=== PATIENT | male | born 1980 | race Caucasian/White ===

== ENCOUNTER 2019-10-17 13:09 | Emergency (ER) | payer BC ==
[2019-10-17] MEDS ORDERED: ASPIRIN 81 MG PO STA (13:35)
[2019-10-17 13:56] LABS: ALT 52 U/L (21-72); AST 34 U/L (17-59); African American GFR (CKD) >90 (>60 ml/min/1.73 sqM); Albumin 4.6 g/dL (3.5-5.0); Alkaline Phosphatase 56 U/L (38-126); Anion Gap 11 mmol/L; Blood Urea Nitrogen 18 mg/dL (9-20); Calcium 9.6 mg/dL (8.4-10.2); Carbon Dioxide 28 mmol/L (22-30); Chloride 103 mmol/L (98-107); Creatine Kinase 112 U/L (55-170); Glucose 104 mg/dL (74-99); Magnesium 1.8 mg/dL (1.6-2.3); Non-African American GFR(CKD) >90 (>60 ml/min/1.73 sqM); Potassium 3.7 mmol/L (3.5-5.1); Sodium 142 mmol/L (137-145); Total Bilirubin 0.6 mg/dL (0.2-1.3); Total Protein 7.6 g/dL (6.3-8.2)
[2019-10-17 13:57] LABS: INR 0.9 (<1.2); Partial Thromboplastin Time 24.3 sec (22.0-30.0); Prothrombin Time 9.8 sec (9.0-12.0)
--- NOTE | 2019-10-17 14:17 | XR ---
EXAMINATION TYPE: XR chest 2V DATE OF EXAM: 10/17/2019 COMPARISON: 11/16/2013 HISTORY: Chest pain TECHNIQUE: Frontal and lateral views of the chest are obtained. FINDINGS: Heart and mediastinum are normal. Lungs are clear. Diaphragm is normal. Bony thorax is int act. IMPRESSION: Normal chest. No change.
--- NOTE | 2019-10-17 14:20 | ED ---
Chest Pain HPI - General Chief Complaint: Chest Pain Stated Complaint: Chest pain Time Seen by Provider: 10/17/19 13:19 Source: patient, RN notes reviewed Mode of arrival: ambulatory Limitations: no limitations - History of Present Illness Initial Comments: 39-year-old male presents emergency Department chief complaint of chest discomfort, shortness of breath, weight gain, leg swelling. Patient's had some on-and-off symptoms of last couple days states that he loss a few pounds on day but gained 10 pounds in which he felt was water weight. He states he leg swelling. He has no history of congestive heart failure no prior cardiac disease other than hypertension. He does believe that he has some family heart history. Patient has no history of asthma COPD denies being a smoker. Patient states that he just feels rundown he does admit that he uses a CPAP at night but states he still feels tired even when using it. Patient denies any prior echo denies any prior stress test. - Related Data Home Medications Medication Instructions Recorded Confirmed Allopurinol [Zyloprim] 100 mg PO DAILY 09/27/14 07/06/16 Colchicine [Colcrys] 0.6 mg PO DAILY 07/06/16 07/06/16 Valsartan [Diovan] 160 mg PO DAILY 07/06/16 07/06/16 Previous Rx's Medication Instructions Recorded Metoprolol Tartrate 25 mg PO BID #30 tab 07/06/16 Allergies Allergy/AdvReac Type Severity Reaction Status Date / Time sulfamethoxazole Allergy Unknown Verified 10/17/19 13:15 [From Bactrim] trimethoprim [From Bactrim] Allergy Unknown Verified 10/17/19 13:15 Penicillins AdvReac Unknown Verified 10/17/19 13:15 Childhood Review of Systems ROS Statement: Those systems with pertinent positive or pertinent negative responses have been documented in the HPI. ROS Other: All systems not noted in ROS Statement are negative. EKG Findings - EKG Comments: EKG Findings:: EKG performed at 13:27 normal sinus rhythm rate of 88 MS 168 QRS 100 QT/QTC 356/4:30 Past Medical History Past Medical History: GERD/Reflux, Hypertension Additional Past Medical History / Comment(s): KIDNEY STONES History of Any Multi-Drug Resistant Organisms: None Reported Additional Past Surgical History / Comment(s): LITHOPTRIPSY Past Anesthesia/Blood Transfusion Reactions: Motion Sickness Past Psychological History: No Psychological Hx Reported Smoking Status: Never smoker Past Alcohol Use History: Occasional Past Drug Use History: None Reported General Exam Limitations: no limitations General appearance: alert, in no apparent distress Head exam: Present: atraumatic, normocephalic, normal inspection Eye exam: Present: normal appearance, PERRL, EOMI. Absent: scleral icterus, conjunctival injection, periorbital swelling ENT exam: Present: normal exam, normal oropharynx, mucous membranes moist Neck exam: Present: normal inspection, full ROM. Absent: tenderness, meningismus, lymphadenopathy Respiratory exam: Present: normal lung sounds bilaterally. Absent: respiratory distress, wheezes, rales, rhonchi, stridor Cardiovascular Exam: Present: regular rate, normal rhythm, normal heart sounds. Absent: systolic murmur, diastolic murmur, rubs, gallop, clicks Extremities exam: Present: pedal edema (Minimal) Neurological exam: Present: alert, oriented X3 Skin exam: Present: warm, dry, intact, normal color. Absent: rash Course Vital Signs 10/17/19 10/17/19 10/17/19 13:12 13:41 14:17 Temperature 97.8 F Pulse Rate 90 83 Respiratory 18 16 16 Rate Blood Pressure 128/76 O2 Sat by Pulse 99 98 Oximetry Chest Pain MDM - MDM Patient's labs, EKG, chest x-ray unremarkable. Patient has a negative d-dimer BMP is unremarkable. Patient has minimal leg swelling. He has atypical chest pain. Patient advised follow-up with cardiology for echocardiogram, stress test and Ultram for any worsening symptoms. Disposition Clinical Impression: Atypical chest pain, Leg edema Disposition: HOME SELF-CARE Condition: Stable Instructions (If sedation given, give patient instructions): Chest Pain (ED) Additional Instructions: Please follow-up with cardiology for echo, stress test.Please return to the Emergency Department if symptoms worsen or any other concerns. Is patient prescribed a controlled substance at d/c from ED?: No Referrals: Chino Alex DO [Primary Care Provider] - 1-2 days Bello Latham MD [STAFF PHYSICIAN] - 1-2 days Time of Disposition: 15:08
[2019-10-17 14:31] LABS: Basophils % (A) 0 %; Eosinophils # (A) 0.2 k/uL (0-0.7); Eosinophils % (A) 3 %; HCT 41.5 % (39.0-53.0); HGB 14.8 gm/dL (13.0-17.5); Hyperchromasia Slight; Lymphocytes # (A) 1.3 k/uL (1.0-4.8); Lymphocytes % (A) 20 %; MCH 28.9 pg (25.0-35.0); MCHC 35.6 g/dL (31.0-37.0); MCV 81.2 fL (80.0-100.0); Mean Platelet Volume 7.1; Monocytes # (A) 0.4 k/uL (0-1.0); Monocytes % (A) 6 %; Neutrophils # (A) 4.5 k/uL (1.3-7.7); Neutrophils % (A) 70 %; Platelet Count 166 k/uL (150-450); Poikilocytosis Slight; RBC 5.11 m/uL (4.30-5.90); WBC 6.5 k/uL (3.8-10.6)
[2019-10-17 15:16] VITALS: BP 125/71; PULSE 82; RESP 18; TEMP 98.1
== END 2019-10-17 15:15 | disposition home or self-care (01) ==
LOC: EC 13:09
DX: R07.89 Other chest pain (principal); R60.0 Localized edema; R06.02 Shortness of breath; R63.5 Abnormal weight gain; R53.83 Other fatigue; I10 Essential (primary) hypertension; Z88.0 Allergy status to penicillin; Z88.2 Allergy status to sulfonamides; Z79.899 Other long term (current) drug therapy; Z87.442 Personal history of urinary calculi; Z98.890 Other specified postprocedural states; Z99.89 Dependence on other enabling machines and devices; Z82.49 Family history of ischemic heart disease and other diseases of the circulatory system
CPT/HCPCS: 36415; 71046; 80053; 82550; 83690; 83735; 83880; 84484; 85025; 85379; 85610; 85730; 93005; 99285

== ENCOUNTER 2021-02-26 17:23 | Emergency (ER) | payer BC, OTHER ==
[2021-02-26 18:43] VITALS: RESP 18
--- NOTE | 2021-02-26 19:04 | XR ---
EXAMINATION TYPE: XR chest 2V DATE OF EXAM: 02/26/2021 COMPARISON: 10/17/2019 HISTORY: Chest pain. Short of breath TECHNIQUE: 2 views FINDINGS: There is patchy bilateral pulmonary infiltrates that measure up to almost 3 cm. Heart size is normal. There is no heart failure. There is no pleural effusion. IMPRESSION: Bilateral patchy pneumonia is new compared to old exam.
[2021-02-26] MEDS ORDERED: BAMLANIVIMAB (EUA) 700 MG, ETESEVIMAB (EUA) 1,400 MG in SODIUM CHLORIDE 0.9% 50 ML IVPB ONE (20:50)
--- NOTE | 2021-02-26 20:51 | ED ---
URI HPI - General Chief Complaint: Upper Respiratory Infection Stated Complaint: covid+/worsen symptoms Time Seen by Provider: 02/26/21 20:23 Source: patient, RN notes reviewed Mode of arrival: ambulatory Limitations: no limitations - History of Present Illness Initial Comments: Patient is a 41-year-old male presents emergency department complaining of Covid symptoms. He did test positive on 02/21/2021. He noted that symptoms began on for 321. He noted that he's had increased dyspnea since developing symptoms. He was in no apparent distress or pain while sitting up in bed during exam and interview. He was well-appearing well-hydrated with no other complaints or issues. He denied any chest pain headache nausea vomiting diarrhea constipation . - Related Data Home Medications Medication Instructions Recorded Confirmed Allopurinol [Zyloprim] 100 mg PO DAILY 09/27/14 07/06/16 Colchicine [Colcrys] 0.6 mg PO DAILY 07/06/16 07/06/16 Valsartan [Diovan] 160 mg PO DAILY 07/06/16 07/06/16 Previous Rx's Medication Instructions Recorded Metoprolol Tartrate 25 mg PO BID #30 tab 07/06/16 Allergies Allergy/AdvReac Type Severity Reaction Status Date / Time sulfamethoxazole Allergy Unknown Verified 10/17/19 13:15 [From Bactrim] trimethoprim [From Bactrim] Allergy Unknown Verified 10/17/19 13:15 Penicillins AdvReac Unknown Verified 10/17/19 13:15 Childhood Review of Systems ROS Statement: Those systems with pertinent positive or pertinent negative responses have been documented in the HPI. ROS Other: All systems not noted in ROS Statement are negative. Past Medical History Past Medical History: GERD/Reflux, Hypertension Additional Past Medical History / Comment(s): KIDNEY STONES History of Any Multi-Drug Resistant Organisms: None Reported Additional Past Surgical History / Comment(s): LITHOPTRIPSY Past Anesthesia/Blood Transfusion Reactions: Motion Sickness Past Psychological History: No Psychological Hx Reported Smoking Status: Never smoker Past Alcohol Use History: Occasional Past Drug Use History: None Reported General Exam Limitations: no limitations General appearance: alert, in no apparent distress, obese Head exam: Present: atraumatic, normocephalic, normal inspection Eye exam: Present: normal appearance, PERRL, EOMI. Absent: scleral icterus, conjunctival injection, periorbital swelling Neck exam: Present: normal inspection. Absent: tenderness, meningismus, lymphadenopathy Respiratory exam: Present: normal lung sounds bilaterally. Absent: respiratory distress, wheezes, rales, rhonchi, stridor Cardiovascular Exam: Present: regular rate, normal rhythm, normal heart sounds. Absent: systolic murmur, diastolic murmur, rubs, gallop, clicks GI/Abdominal exam: Present: soft, normal bowel sounds. Absent: distended, tenderness, guarding, rebound, rigid Extremities exam: Present: normal inspection, full ROM, normal capillary refill. Absent: tenderness, pedal edema, joint swelling, calf tenderness Neurological exam: Present: alert, oriented X3, CN II-XII intact Psychiatric exam: Present: normal affect, normal mood Skin exam: Present: warm, dry, intact, normal color. Absent: rash Course Vital Signs 02/26/21 18:29 Temperature 99.5 F Pulse Rate 108 H Respiratory 18 Rate Blood Pressure 124/75 O2 Sat by Pulse 96 Oximetry Medical Decision Making - Medical Decision Making 41-year-old male that tested positive for Covid on 02/21/2021. Chest x-ray, Covid test ordered. Covid test positive. Chest x-ray did show some patchy bilateral infiltrates. Patient was informed that he does meet criteria for monoclonal antibody therapy and wishes to undergo the IV infusion treatment. Case discussed with Dr. Lucas, patient can discharge home - Lab Data Lab Results 02/26/21 Range/Units 18:44 Coronavirus (PCR) Detected A (Not Detectd) - Radiology Data Radiology results: report reviewed, image reviewed Chest x-ray: Bilateral patchy pneumonia is new compared to old exam. Disposition Clinical Impression: COVID-19 Disposition: HOME SELF-CARE Condition: Stable Instructions (If sedation given, give patient instructions): Coronavirus Disease 2019 (COVID-19), Upper Respiratory Infection (ED) Additional Instructions: Please return to the Emergency Department if symptoms worsen or any other concerns. Follow-up with primary care after the 10-14 day quarantine From symptom onset. Can continue to take [id number] anti-inflammatories for fevers and muscle aches and pains. Increase oral fluids get plenty rest. Is patient prescribed a controlled substance at d/c from ED?: No Referrals: Chino Alex DO [Primary Care Provider] - 1-2 days Time of Disposition: 21:21
[2021-02-26] MEDS ORDERED: SODIUM CHLORIDE 0.9% 50 ML IVPB ONE (21:10)
[2021-02-26] MEDS ORDERED: SODIUM CHLORIDE 0.9% 1,000 ML IV ONE (21:21)
[2021-02-26 22:01] VITALS: BP 150/87; PULSE 94; TEMP 98.8
== END 2021-02-26 22:48 | disposition home or self-care (01) ==
LOC: EC 17:23
DX: U07.1 COVID-19 (principal); K21.9 Gastro-esophageal reflux disease without esophagitis; I10 Essential (primary) hypertension
CPT/HCPCS: 87635; 71046; 99285; 96365; Q0245

== ENCOUNTER 2022-06-25 09:18 | Emergency (ER) | payer BC ==
[2022-06-25 09:31] VITALS: BP 152/99; PULSE 77; RESP 18; TEMP 97.5
[2022-06-25] MEDS ORDERED: SODIUM CHLORIDE 0.9% 2,000 ML IV STA (09:38)
[2022-06-25] MEDS ORDERED: ONDANSETRON 4 MG/2 ML VIAL IVP STA (09:38)
[2022-06-25] MEDS ORDERED: KETOROLAC 15 MG/ML 1 ML VIAL IVP STA (09:38)
[2022-06-25] MEDS ORDERED: HYDROmorphone 0.5 MG/0.5 ML SYRINGE IVP STA (09:38)
[2022-06-25 09:44] LABS: Basophils # (A) 0.1 k/uL (0-0.2); Basophils % (A) 1 %; Eosinophils # (A) 0.2 k/uL (0-0.7); Eosinophils % (A) 2 %; HCT 49.5 % (39.0-53.0); Lymphocytes # (A) 1.2 k/uL (1.0-4.8); Lymphocytes % (A) 12 %; MCH 28.6 pg (25.0-35.0); MCHC 34.4 g/dL (31.0-37.0); MCV 83.1 fL (80.0-100.0); Mean Platelet Volume 8.6; Monocytes # (A) 0.5 k/uL (0-1.0); Monocytes % (A) 5 %; Neutrophils # (A) 8.4 k/uL (1.3-7.7); Neutrophils % (A) 80 %; Platelet Count 148 k/uL (150-450); Poikilocytosis Slight; RBC 5.95 m/uL (4.30-5.90); RDW 14.4 % (11.5-15.5); WBC 10.6 k/uL (3.8-10.6)
--- NOTE | 2022-06-25 09:45 | ED ---
General Adult HPI - General Chief complaint: Back Pain/Injury Stated complaint: Abdominal pain, kidney stone Time Seen by Provider: 06/25/22 09:32 Source: patient, RN notes reviewed Mode of arrival: ambulatory Limitations: no limitations - History of Present Illness Initial comments: This a 42-year-old male presents emergency Department chief complaint right flank pain. Patient states that pain woke him up around 3 AM there is some consistent pain but does wax and wane. Patient states never resolves patient states nothing makes the pain feel better or worse does admit to nausea vomiting states he had a kidney stone 15 years ago that was incidentally found states that the pain felt like this is much different than the past. Patient denies any prior abdominal surgeries no dysuria no hematuria no diarrhea no constipation denies fever or chills - Related Data Home Medications Medication Instructions Recorded Confirmed allopurinoL [Zyloprim] 100 mg PO DAILY 09/27/14 07/06/16 Colchicine [Colcrys] 0.6 mg PO DAILY 07/06/16 07/06/16 Valsartan [Diovan] 160 mg PO DAILY 07/06/16 07/06/16 Previous Rx's Medication Instructions Recorded Metoprolol Tartrate 25 mg PO BID #30 tab 07/06/16 HYDROcodone/APAP 7.5-325MG [[place] 1 tab PO Q6HR PRN 3 Days #12 tab 06/25/22 7.5-325] Ondansetron Odt [Zofran Odt] 4 mg PO Q8HR PRN #14 tab 06/25/22 Tamsulosin [Flomax] 0.4 mg PO DAILY #7 cap 06/25/22 Allergies Allergy/AdvReac Type Severity Reaction Status Date / Time sulfamethoxazole Allergy Unknown Verified 06/25/22 09:28 [From Bactrim] trimethoprim [From Bactrim] Allergy Unknown Verified 06/25/22 09:28 Penicillins AdvReac Unknown Verified 06/25/22 09:28 Childhood Review of Systems ROS Statement: Those systems with pertinent positive or pertinent negative responses have been documented in the HPI. ROS Other: All systems not noted in ROS Statement are negative. Past Medical History Past Medical History: GERD/Reflux, Hypertension Additional Past Medical History / Comment(s): KIDNEY STONES History of Any Multi-Drug Resistant Organisms: None Reported Additional Past Surgical History / Comment(s): LITHOPTRIPSY Past Anesthesia/Blood Transfusion Reactions: Motion Sickness Past Psychological History: No Psychological Hx Reported Smoking Status: Never smoker Past Alcohol Use History: Occasional Past Drug Use History: None Reported General Exam Limitations: no limitations General appearance: alert, in no apparent distress Head exam: Present: atraumatic, normocephalic, normal inspection Respiratory exam: Present: normal lung sounds bilaterally. Absent: respiratory distress, wheezes, rales, rhonchi, stridor Cardiovascular Exam: Present: regular rate, normal rhythm, normal heart sounds. Absent: systolic murmur, diastolic murmur, rubs, gallop, clicks GI/Abdominal exam: Present: soft, normal bowel sounds. Absent: distended, tenderness, guarding, rebound, rigid Back exam: Present: full ROM. Absent: tenderness, CVA tenderness (R) (Patient has no increase in pain with palpation over reported.), CVA tenderness (L), paraspinal tenderness, vertebral tenderness Skin exam: Present: warm, dry, intact, normal color. Absent: rash Course Vital Signs 06/25/22 09:28 Temperature 97.5 F L Pulse Rate 77 Respiratory 18 Rate Blood Pressure 152/99 O2 Sat by Pulse 98 Oximetry Medical Decision Making - Medical Decision Making CT shows evidence a 6 mm UPJ stone. Patient's kidney function is mildly elevated this a chronic in nature. Patient was hydrated, given pain control. Patient discharged with follow-up with urology as a 6 mm stone. - Lab Data Result diagrams: 06/25/22 09:35 06/25/22 09:35 Lab Results 06/25/22 06/25/22 06/25/22 Range/Units 09:35 09:35 09:50 WBC 10.6 (3.8-10.6) k/uL RBC 5.95 H (4.30-5.90) m/uL Hgb 17.0 (13.0-17.5) gm/dL Hct 49.5 (39.0-53.0) % MCV 83.1 (80.0-100.0) fL MCH 28.6 (25.0-35.0) pg MCHC 34.4 (31.0-37.0) g/dL RDW 14.4 (11.5-15.5) % Plt Count 148 L (150-450) k/uL MPV 8.6 Neutrophils % 80 % Lymphocytes % 12 % Monocytes % 5 % Eosinophils % 2 % Basophils % 1 % Neutrophils # 8.4 H (1.3-7.7) k/uL Lymphocytes # 1.2 (1.0-4.8) k/uL Monocytes # 0.5 (0-1.0) k/uL Eosinophils # 0.2 (0-0.7) k/uL Basophils # 0.1 (0-0.2) k/uL Poikilocytosis Slight Sodium 140 (137-145) mmol/L Potassium 4.1 (3.5-5.1) mmol/L Chloride 101 (98-107) mmol/L Carbon Dioxide 26 (22-30) mmol/L Anion Gap 13 mmol/L BUN 23 H (9-20) mg/dL Creatinine 1.36 H (0.66-1.25) mg/dL Est GFR (CKD-EPI)AfAm 73 (>60 ml/min/1.73 sqM) Est GFR (CKD-EPI)NonAf 63 (>60 ml/min/1.73 sqM) Glucose 92 (74-99) mg/dL Calcium 9.8 (8.4-10.2) mg/dL Total Bilirubin 1.2 (0.2-1.3) mg/dL AST 39 (17-59) U/L ALT 51 H (4-49) U/L Alkaline Phosphatase 64 (38-126) U/L Total Protein 8.2 (6.3-8.2) g/dL Albumin 5.0 (3.5-5.0) g/dL Lipase 157 (23-300) U/L Urine Color Yellow Urine Appearance Clear (Clear) Urine pH 5.5 (5.0-8.0) Ur Specific [place] 1.025 (1.001-1.035) Urine Protein Trace H (Negative) Urine Glucose (UA) Negative (Negative) Urine Ketones Negative (Negative) Urine Blood Large H (Negative) Urine Nitrite Negative (Negative) Urine Bilirubin Negative (Negative) Urine Urobilinogen <2.0 (<2.0) mg/dL Ur Leukocyte Esterase Negative (Negative) Urine RBC >182 H (0-5) /hpf Urine WBC 1 (0-5) /hpf Ur Squamous Epith Cells <1 (0-4) /hpf Hyaline Casts 1 (0-2) /lpf Urine Mucus Rare H (None) /hpf Disposition Clinical Impression: Obstruction of right ureteropelvic junction (UPJ) due to stone Disposition: HOME SELF-CARE Condition: Stable Instructions (If sedation given, give patient instructions): Kidney Stones (ED) Additional Instructions: Please return to the Emergency Department if symptoms worsen or any other concerns. Prescriptions: Tamsulosin [Flomax] 0.4 mg PO DAILY #7 cap HYDROcodone/APAP 7.5-325MG [[place] 7.5-325] 1 tab PO Q6HR PRN 3 Days #12 tab PRN Reason: pain Ondansetron Odt [Zofran Odt] 4 mg PO Q8HR PRN #14 tab PRN Reason: Nausea Is patient prescribed a controlled substance at d/c from ED?: No Referrals: Chino Alex DO [Primary Care Provider] - 1-2 days Pradeep Llanos MD [STAFF PHYSICIAN] - 1-2 days Time of Disposition: 10:55
[2022-06-25 10:05] LABS: Calcium 9.8 mg/dL (8.4-10.2); Potassium 4.1 mmol/L (3.5-5.1); Total Bilirubin 1.2 mg/dL (0.2-1.3); Total Protein 8.2 g/dL (6.3-8.2)
[2022-06-25 10:25] LABS: Appearance,Urine Clear (Clear); Bilirubin,Urine Negative (Negative); Blood,Urine Large (Negative); Color,Urine Yellow; Glucose,Urine (UA) Negative (Negative); Hyaline Casts,Urine 1 /lpf (0-2); Ketones,Urine Negative (Negative); Leukocyte Esterase,Urine Negative (Negative); Mucus,Urine Rare /hpf; Nitrite,Urine Negative (Negative); PH, Urine 5.5 (5.0-8.0); Protein,Urine Trace (Negative); RBC,Urine >182 /hpf (0-5); Specific Gravity,Urine 1.025 (1.001-1.035); Squamous Epithelial Cell,Urine <1 /hpf (0-4); Urobilinogen,Urine <2.0 mg/dL (<2.0); WBC,Urine 1 /hpf (0-5)
--- NOTE | 2022-06-25 10:35 | CT ---
EXAMINATION TYPE: CT abdomen pelvis wo con DATE OF EXAM: 06/25/2022 COMPARISON: None HISTORY: 42-year-old male Right flank pain, concern for stone. Hx of kidney stones. CT DLP: 1306.4 mGycm. Automated exposure control for dose reduction was used. TECHNIQUE: Contiguous axial scanning of the abdomen and pelvis without IV contrast. Coronal and sagit france reconstructions performed. FINDINGS: Lack of IV contrast limits assessment of the solid abdominal viscera, lymph nodes, and vascular struc tures. LUNG BASES: No significant abnormality is appreciated. LIVER/GB: MRSA 21.0 cm with low attenuation compatible with fatty infiltration. Gallbladder shows no abnormal distention or wall thickening. PANCREAS: No significant abnormality is seen. SPLEEN: Enlarged at 15.9 cm measured on coronal series. ADRENALS: No significant abnormality is seen. KIDNEYS: Partially exophytic lesion from the lower pole right kidney measuring 3.7 cm. This has inter mediate attenuation of 21 Hounsfield units. A mildly complicated cyst is suspected. Confirmation with ultrasound recommended when patient's condition has improved. Similar lesion measuring 2.8 cm within the anterior left kidney. Solid masses should be excluded. 4 mm nonobstructive left midpole renal calculus. There is a 6 mm stone just beyond the right UPJ with [id number] obstructive uropathy. Right-sided perinephric edema likely reactive to the urinary tract obstruction. BOWEL: No significant abnormality is seen. Normal appendix. Mild stool. No pericolonic inflammatory change. LYMPH NODES: No mesenteric or retroperitoneal lymphadenopathy. No free fluid or free air. PELVIS: Prostate gland mildly enlarged 0.7 cm wide. Small pelvic phlebolith. No abnormal fluid collec tion in the pelvis. Patulous inguinal canals. No pelvic lymphadenopathy. Bladder collapsed. BONES: Mild multilevel degenerative change in the visualized thoracic and lumbar spine. IMPRESSION: 1. A 6 mm stone upper right ureter just beyond the UPJ with [id number] obstructive uropathy. R ight-sided perinephric edema likely reactive to the ureteral obstruction. Correlate to exclude superi mposed infection. Additional nonobstructing 4 mm left renal calculus. 2. A 3.7 cm round lesion right kidney and a 2.8 cm similar round lesion in the left kidney. These joshua th show intermediate attenuation and could represent complicated cysts or solid masses. The former is favored and should be confirmed with a renal ultrasound on an outpatient basis after the patient's a cute condition has resolved. 3. Hepatosplenic medically (liver 21.0 cm and spleen 15.9 cm). Clinically correlate. There is also underlying moderate hepatic steatosis.
== END 2022-06-25 11:30 | disposition home or self-care (01) ==
LOC: EC 09:18
DX: N13.5 Crossing vessel and stricture of ureter without hydronephrosis (principal); I10 Essential (primary) hypertension; Z88.2 Allergy status to sulfonamides; Z88.0 Allergy status to penicillin
CPT/HCPCS: 36415; 80053; 83690; 85025; 81001; 74176; 99284; 96374; 96375; 96361; J2405; J1885; J1170

== ENCOUNTER → 2022-06-26 | Outpatient (CLI) | payer BC ==
--- NOTE | 2022-06-26 10:07 | XR ---
EXAMINATION TYPE: XR KUB DATE OF EXAM: 06/26/2022 COMPARISON: CT abdomen pelvis a 922 HISTORY: Pain TECHNIQUE: Single KUB image of the abdomen is obtained FINDINGS: Small bowel demonstrates no evidence for dilatation or air fluid levels. Gas and fecal material is seen in non-distended colon. There is a 6 mm radiopaque calculus just right lateral to the L3-L4 vertebral bodies corresponding to CT yesterday. This appears in similar location to CT and is in the region of the proximal right uret er. The osseous structures are intact. IMPRESSION: 6 mm radiopaque calculus just right lateral to L3-L4 bodies in the proximal right ureter correspondin g to CT. No significant change in position.
== END | disposition home or self-care (01) ==
LOC: RADXRMAIN 09:09
PROVIDERS: ATTEND Urology
DX: N20.1 Calculus of ureter (principal)
CPT/HCPCS: 74018

== ENCOUNTER → 2022-08-07 | Outpatient (CLI) | payer BC ==
--- NOTE | 2022-08-07 15:38 | MR ---
MR kidney with and without contrast HISTORY: Right renal mass Multiplanar multisequence and postcontrast images obtained through the kidneys, patient received 12.5 cc Gadavist IV Correlation CT scan 06/25/2022 lung bases are unremarkable. Aorta shows normal caliber. Incidental note made of probable hepatic steatosis, there is signal drop on out of phase imaging, bill e focal fatty sparing suspected adjacent to the gallbladder. The liver and spleen are enlarged. There is no retroperitoneal adenopathy. Colonic interposition noted anterior to the liver. Adrenal glands are within normal limits. Pancreas is normal. Gallbladder shows no definite stones. No evident bowel obstruction. The previously identified proximal right ureteral calculus and hydronephrosis is no longer seen. The previously described cystic focus associated with the lower pole the right kidney is again noted and shows T2 hyperintensity but is low signal on T1 and does not show any enhancement. Lesion measures ap proximately 3.8 cm. Immediately adjacent to the largest lesion is a smaller lesion somewhat more ceph alad which measures approximately 2 cm, suspect there is a minimal area of hyperintensity on T1-weigh marko sequences which is dependent, possible milk of calcium which may account for some slight diminish ed signal on T2 weighted sequences as compared to the larger adjacent lesion however there is no appr eciable enhancement following contrast administration. On the left anteriorly there is a focus of mixed signal on T2 weighted sequences corresponding to the mass seen on CT measuring 3 cm, T1 signal is low to intermediate with a focus of high signal. There is some enhancement present following contrast administration. Multiple T2 bright foci are scattered within the left kidney which are subcentimeter in size, small cortical cysts also suspected within th e right kidney which are subcentimeter in size. IMPRESSION: Anterior lesion within the left kidney is suspicious for renal cell carcinoma. Hepatosple nomegaly and hepatic steatosis. Cortical cysts are present within the bilateral kidneys, possible pro teinaceous cyst involving the right kidney not described on prior CT, follow-up.
== END | disposition home or self-care (01) ==
LOC: RADMRIMAIN 09:27
PROVIDERS: ATTEND Urology
DX: N28.9 Disorder of kidney and ureter, unspecified (principal); K76.0 Fatty (change of) liver, not elsewhere classified; N28.1 Cyst of kidney, acquired
CPT/HCPCS: 74183; A9585

== ENCOUNTER → 2023-03-11 | Outpatient (CLI) | payer BC ==
--- NOTE | 2023-03-11 14:59 | P.SLEEP ---
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 The patient has been diagnosed having MARILYN back in 2016. At that time, the patient was given a home sleep study and the patient was found to have mild obstructive sleep apnea with an AHI of 12. Subsequently, the patient underwent a CPAP titration on 07/01/2016 and the patient was titrated to a CPAP pressure of 10 cm of water. He was offered a CPAP unit. He used the machine for a while and then he quit and subsequently went back on using the machine. He is not sure if he is benefiting from the treatment. His is happy with the treatment as the patient does not snore while on therapy. He is known to have history of renal cancer and the patient is undergone partial left nephrectomy, he also has hypertension and obesity. His weight has remained stable over the past 6 years and the patient's weight is around 270 pounds. His machine is functional. Is using the [employer] fx nasal pillows. I checked the compliance data on his machine. Over the past 30 days, the patient utilized the machine 27 out of 30 days. His been averaging around 6.6 hours of CPAP use per night. His leak is in order of 17 L/m. His AHI is down to 0.3 indicating very successful treatment. His Houston score is at 8. The patient works after nauseous on the border. The patient is working between 2 PM and midnight. He goes to bed at around 1:30 AM and he gets out of bed at around 7:30 AM in the morning. He is averaging only 6-7 hours of sleep. He drinks caffeinated beverages to keep himself alert and awake. He wakes up once in the middle of night to urinate. Does not take any naps during the day. His functionality is well preserved. No history of any motor vehicle accident because of feeling drowsy or sleepy. Review of Systems Constitutional: Reports daytime sleepiness, Reports fatigue Eyes: denies as per HPI, denies blurred vision, denies bulging eye, denies decreased vision, denies diplopia, denies discharge, denies dry eye, denies irritation, denies itching, denies pain, denies photophobia, denies loss of peripheral vision, denies loss of vision, denies tunnel vision/blind spots Ears: deny: decreased hearing, ear discharge, earache, tinnitus Ears, nose, mouth and throat: Reports as per HPI Breasts: absent: as per HPI, gynecomastia Cardiovascular: Reports as per HPI Respiratory: Reports sleep apnea Gastrointestinal: Reports as per HPI Genitourinary: Reports as per HPI Musculoskeletal: Reports as per HPI Musculoskeletal: absent: ankle pain, ankle stiffness, ankle swelling, as per HPI, elbow pain, elbow stiffness, elbow swelling, foot pain, foot stiffness, foot swelling, hand pain, hand stiffness, hand swelling, hip pain, hip stiffness , hip swelling, knee pain, knee stiffness, knee swelling, shoulder pain, shoulder stiffness, shoulder swelling, wrist pain, wrist stiffness, wrist swelling Integumentary: Reports as per HPI Neurological: Reports as per HPI Psychiatric: Reports as per HPI Endocrine: Reports as per HPI Hematologic/Lymphatic: Reports as per HPI Allergic/Immunologic: Reports as per HPI Past Medical History Past Medical History: Cancer (Renal cell cancer and the patient undergone a partial nephrectomy), Hyperlipidemia, Hypertension, Sleep Apnea/CPAP/BIPAP Additional Past Medical History / Comment(s): KIDNEY STONES,. GOUT. FATTY LIVER. USES C PAP MACHINE History of Any Multi-Drug Resistant Organisms: None Reported, MRSA Date of last positivie culture/infection: 11/21/21 MDRO Source:: [facility] LT KNEE Additional Past Surgical History / Comment(s): LITHOPTRIPSY. COLONOSCOPY Past Anesthesia/Blood Transfusion Reactions: Motion Sickness Smoking Status: Never smoker - Past Family History Mother Family Medical History: No Reported History Medications and Allergies Home Medications Medication Instructions Recorded Confirmed Type Colchicine [Colcrys] 0.6 mg PO DAILY PRN 07/06/16 07/01/22 History Ondansetron Odt [Zofran Odt] 4 mg PO Q8HR PRN #14 tab 06/25/22 07/01/22 Rx Tamsulosin [Flomax] 0.4 mg PO DAILY #7 cap 06/25/22 07/01/22 Rx Ketorolac [Toradol] 10 mg PO Q6HR PRN 07/01/22 07/01/22 History Olmesartan/Hydrochlorothiazide 1 each PO DAILY 07/01/22 07/01/22 History [Olmesartan-Hctz 40-25 mg Tab] allopurinoL [Zyloprim] 300 mg PO DAILY 07/01/22 07/01/22 History Ciprofloxacin HCl [Cipro] 250 mg PO Q12HR 1 Days #2 tab 07/03/22 Rx Ibuprofen 800 mg PO Q8H PRN #15 tab 07/03/22 Rx Allergies Allergy/AdvReac Type Severity Reaction Status Date / Time sulfamethoxazole Allergy Unknown Verified 07/03/22 11:52 [From Bactrim] trimethoprim [From Bactrim] Allergy Unknown Verified 07/03/22 11:52 Penicillins AdvReac Unknown Verified 07/03/22 11:52 Childhood Physical Exam BP is 130/64, pulse is 115, respirations 16, temperature 98.3 and a pulse ox 95% on room air oxygen. Patient's body weight is 270, height is 5 feet and 9 inches, BMI 39.2, Houston score is at 8 The patient appeared well nourished and normally developed. Vital signs as documented. Head exam is unremarkable. No scleral icterus or corneal arcus noted. Neck is without jugular venous distension, thyromegaly, or carotid bruits. The patient has significant crowding of the posterior oropharynx with a Mallampati class IV. Carotid upstrokes are brisk bilaterally. Lungs are clear to auscultation and percussion. Cardiac exam reveals the PMI to be normally sized and situated. Rhythm is regular. First and second heart sounds normal. No murmurs, rubs or gallops. Abdominal exam reveals normal bowel sounds, no masses, no organomegaly and no aortic enlargement. Extremities are nonedematous and both femoral and pedal pulses are normal.Examination of the skin revealed no evidence of significant rashes, suspicious appearing nevi or other concerning lesions.Neurologically, the patient is awake and alert and the patient does not have any focal neurological deficit. Cranial nerves are essentially intact. Assessment and Plan Plan: Obstructive sleep apnea, mild in severity and based on a home sleep study that was done in 2016, the patient has an AHI of 12 and the patient remains on CPAP therapy. The patient was initially given a CPAP pressure of 10 cm of water. Nevertheless, over the years, he has made adjustments and currently is on a APAP mode pressures of 7 minimum and maximum of 20. The treatments remained succe ssful. His AHI is down to 0.3 and the patient's average pressure delivered by the machines around 9.3 cm of water. He is using nasal pillows. Obesity with a BMI 39.2, no interval weight gain since 2016 Chronic hypersomnia Hypertension History of renal cancer with a previous partial left nephrectomy Gout Fatty liver Kidney stones Plan Patient is very much interested in reevaluation to reevaluate the severity of his illness in terms of his sleep apnea. Based on that, I ordered a home sleep study in this patient. Note that his baseline AHI was 12 back in 2016. At the same time, the patient was offered the new mask. He was offered [employer] p30[employer] nasal pillows medium size. He had a good state on today's trial and he is going to give it a try at home and started using the new mask. Meanwhile, I made modifications CPAP pressure. I kept him on APAP mode adjusting the pressures to minimum pressure of 6 and the max and pressure of 12. He was encouraged to lose weight. Optimize sleep hygiene measures. See me back in 6 months time in follow-up. Treatment in general is successful. Sleep Note - Sleep Note Sleep Note: Temperature: Pulse Rate: Respiratory Rate: Blood Pressure: SpO2: Height: Weight: BMI: Neck Circumference:
== END ==
LOC: SLEEP 13:44
PROVIDERS: ATTEND Internal Medicine Critical Care Medicine
DX: G47.33 Obstructive sleep apnea (adult) (pediatric) (principal); Z99.89 Dependence on other enabling machines and devices; E66.9 Obesity, unspecified; Z68.39 Body mass index [BMI] 39.0-39.9, adult; I10 Essential (primary) hypertension; M10.9 Gout, unspecified; N20.0 Calculus of kidney; K76.0 Fatty (change of) liver, not elsewhere classified; Z85.528 Personal history of other malignant neoplasm of kidney; Z90.5 Acquired absence of kidney; Z88.0 Allergy status to penicillin; Z88.2 Allergy status to sulfonamides
CPT/HCPCS: 99211

== ENCOUNTER → 2025-03-09 | Outpatient (CLI) | payer BC ==
[2025-03-09 15:21] LABS: Blood Urea Nitrogen 18.5 mg/dL (9.0-27.0); Carbon Dioxide 25.4 mmol/L (21.6-31.8); Chloride 106 mmol/L (96-109); Chol/HDL Ratio 4.36 Ratio; Glucose 94 mg/dL (70-110); LDL Cholesterol,Calculated 106.6 mg/dL (0.0-131.0); Potassium 3.8 mmol/L (3.5-5.5); Sodium 143 mmol/L (135-145)
[2025-03-09 15:22] LABS: ALT 58 U/L (10-49); AST 39 U/L (14-35); Albumin 4.6 g/dL (3.8-4.9); Albumin/Globulin Ratio 1.77 Ratio (1.60-3.17); Alkaline Phosphatase 64 U/L (41-126); Calcium 9.5 mg/dL (8.7-10.3); Globulin 2.6 g/dL (1.6-3.3); Total Bilirubin 0.7 mg/dL (0.3-1.2); Total Protein 7.2 g/dL (6.2-8.2)
[2025-03-09 16:02] LABS: HCT 44.9 % (39.6-50.0); HGB 15.5 g/dL (13.0-17.0); MCH 28.4 pg (27.0-32.0); MCHC 34.5 g/dL (32.0-37.0); MCV 82.2 FL (80.0-97.0); Mean Platelet Volume 10.9 FL (9.5-12.2); NRBC Per 100 WBC 0 X 10*3/uL (0.00-0.01); Platelet Count 187 X 10*3/uL (140-440); RBC 5.46 X 10*6/uL (4.40-5.60); RDW 14.7 % (11.5-14.5); WBC 5.25 X 10*3/uL (4.50-10.00)
== END | disposition home or self-care (01) ==
LOC: LABWHC1 09:06
PROVIDERS: ATTEND Nurse Practitioner Family
DX: E78.1 Pure hyperglyceridemia (principal)
CPT/HCPCS: 36415; 80053; 80061; 83036; 85027